=== PATIENT | female | born 1990 | race Caucasian/White ===

== ENCOUNTER 2022-02-04 13:49 | Outpatient (CLI) | payer OTHER, SELFPAY ==
--- NOTE | 2022-02-04 14:00 | CRLHL7_ITS ---
For Patients: As a result of the Century Cures Act, medical imaging exams and procedure reports are released immediately into your electronic medical record. You may view this report before your referring provider. If you have questions, please contact your health care provider. OBSTETRICAL ULTRASOUND, 02/04/2022 JOE by LMP: 06/20/2022. GA: 20w, 4d. INDICATION: OB>14 weeks anatomy. FINDINGS: position: Vertex. Cervix: Visualized. Technique: Transabdominal. Length of closed cervix: 4.6 cm. Placenta/cord: Posterior. Technique: Transabdominal. Placenta tip to internal OS: 4.5 cm. Umbilical Cord: 3-vessel cord. Placenta insertion: Central. Amniotic Fluid: 4.2cm SDP (greater than/equal to: 2- less than 8 cm). SURVEY: Observed Structures Calvarium/Spine: Cerebellum: 1.9 cm, 19w 5d. Cisterna Magna: 5.1 mm. Nuchal Fold: 4.8 mm. Lateral Ventricle: 7.0 mm. CSP: Yes. Midline Falx: Yes. Choroid Plexus: Yes. Spine: Yes. Abdomen: Stomach: Yes. Abd Cord Insertion: Yes. Urinary Bladder: Yes. Kidneys: Yes. Diaphragm: Yes. Face: Nose/lips: Yes. Orbital view: Yes. Profile: Yes. Limbs: Upper Extremities: Yes. Lower Extremities: Yes. Hands: Yes. Feet: Yes. BPD: 4.8 cm. 20 w 3 d, 42 percent. HC: 18.3 cm. 20 w 5 d, 47 percent. AC: 16.6 cm. 21 w 4 d, 77 percent. FL: 3.4 cm. 20 w 4 d, 42 percent. FL/AC: 20 percent. HC/AC Ratio: 1.1. Heart rate: 150 beats per minute. age by this US: 20 w 4 d. JOE by this US: 06/20/2022 EFW: 397.3g. Weight: 14 oz. Percentile by JOE: 73 percent. IMPRESSION: Single live intrauterine gestastion. No gross anomalies visualized. Four-chamber heart, outflow tracts, and profile views were poorly seen. Rubina Youssef M.D. Diagnostic/Breast Radiologist [email or web address] Transcribed: 8:30 a.m. JR/Dictated by: Rubina Youssef MD @ 02/06/2022 6:12:00 AM (Electronically Signed)
== END 2022-02-04 13:50 | disposition home or self-care (01) ==
LOC: US 13:49
PROVIDERS: PCP Family Medicine; Visit Provider Advanced Practice Midwife
DX: Z34.92 Encounter for supervision of normal pregnancy, unspecified, second trimester (principal); Z3A.20 20 weeks gestation of pregnancy
CPT/HCPCS: 76805

== ENCOUNTER 2022-02-26 16:48 | Outpatient (CLI) | payer OTHER, SELFPAY ==
--- NOTE | 2022-02-26 17:00 | CRLHL7_ITS ---
For Patients: As a result of the Century Cures Act, medical imaging exams and procedure reports are released immediately into your electronic medical record. You may view this report before your referring provider. If you have questions, please contact your health care provider. INDICATION: missing heart and profile on anatomy scan COMPARISON: 02/04/2022 TECHNIQUE: Real time huertas scale imaging of the fetus was performed. FINDINGS: Sonographic imaging demonstrates a single living intrauterine gestation. Fetus demonstrates a regular cardiac rate of 149 beats per minute. Fetus has a breech position. The placenta lies posteriorly. Amniotic fluid volume appears normal. Single deepest vertical pocket: 4.6 cm. There is a normal four-chamber heart view and the left and right ventricular outflow tracts appear normal. Normal profile. IMPRESSION: Normal heart and profile. Dictated by Yevgeniy Rosa MD @ 02/28/2022 11:35:39 AM (Electronically Signed)
== END 2022-02-26 16:49 | disposition home or self-care (01) ==
PROVIDERS: PCP Family Medicine; Visit Provider Advanced Practice Midwife
DX: O36.8390 Maternal care for abnormalities of the fetal heart rate or rhythm, unspecified trimester, not applicable or unspecified (principal)
CPT/HCPCS: 76816

== ENCOUNTER 2022-03-26 15:05 | Outpatient (CLI) | payer OTHER, SELFPAY ==
--- OUTSIDE RECORDS SUMMARY | 2022-03-26 16:28 | XMS_ITS ---
:1990 Author Name None, No PCP Care Team Providers Name Role Phone None, No PCP Unavailable Unavailable PROBLEMS Unknown Problems ALLERGIES No Known Allergies ENCOUNTERS Encounter Location Date Diagnosis [facility] [address], [place], [place] [id number] [facility] [address] [place] Dec, [place] [address] confirmed, currently in second trimester Z34.02 [facility] [address] [place] Nov, [place] [address] screening for chromosomal anomalies Z36.0 [facility] [address] [place] Nov, E [place] [address] of other n ormal , first trimester Z34.81 [facility] [address] [place] Nov, E [place] [address] of other n ormal , unspe cified trimester Z34.80 [facility] [address] [place] Nov, [place] [address] related ex amination in first trimester Z34.81 and Diabetes yoel litus screening Z13.1 [facility] [address] [place] Oct, [place] [address] related ex amination in first trimester Z34.81 [facility] [address] [place] Oct, [place] [address] [facility] [address] Oct, E [place] [address] of other n ormal , unspe cified trimester Z34.80 [facility] [address] Oct, [place] [address] related ex amination in first trimester Z34.81 and Screening fo r diabetes mellitu s Z13.1 IMMUNIZATIONS No Known Immunizations SOCIAL HISTORY Qualifiers Date Never Smoker REASON FOR REFERRAL FUNCTIONAL STATUS PLAN OF CARE Activity Details Pending Test HEMOGLOBIN A1c Pending Test HEPATITIS C AB W/REFL TO HCV RNA, QN, PCR Pending Test VARICELLA ZOSTER VIRUS ANTIB EMORY (IGG) Pending Test OBSTETRIC PANEL W/FOURTH GEN ERATION HIV Pending Test OBSTETRIC PANEL W/FOURTH GEN ERATION HIV Pending Test HEPATITIS C AB W/REFL TO HCV RNA, QN, PCR Pending Test VARICELLA ZOSTER VIRUS ANTIB EMORY (IGG) Pending Test HEMOGLOBIN A1c VITAL SIGNS Height 64 in 2022-01-10 Weight 170.6 lbs 2022-01-10 BMI 29.283 kg/m2 2022-01-10 Blood pressure systolic 108 mm Hg 2022-01-10 Blood pressure diastolic 60 mm Hg 2022-01-10 MEDICATIONS Medication Instructions Dosage Frequency Start Date End Date Duration S tatus Active PROCEDURES Procedure Date Ordered Result Body Site BRIEF EMOTIONAL/BEHAV ASSMT Nov 14, 2021 MATERNITY CARE PROCEDURE Jan 10, 2022 VENIPUNCT, ROUTINE* Dec 12, 2021 MATERNITY CARE PROCEDURE Dec 12, 2021 OB US < 14 WKS, SINGLE FETUS Dec 12, 2021 No Charge Visit Dec 12, 2021 URINALYSIS, AUTO, W/O SCOPE Nov 14, 2021 OB US < 14 WKS, SINGLE FETUS Nov 14, 2021 No Charge Visit Nov 14, 2021 RESULTS Name Result Date Reference Range Panorama Test 2021-12-12 Report Summary See Notes HEMOGLOBIN A1c 2021-12-12 HEMOGLOBIN A1c 5.2 <5.7 HEPATITIS C AB W/REFL TO HCV RNA, 2021-12-12 QN, PCR HEPATITIS C ANTIBODY NON-REACTIVE NON-REACTIV E INDEX 0.07 <1.00 VARICELLA ZOSTER VIRUS ANTIBODY 2021-12-12 (IGG) VARICELLA ZOSTER VIRUS ANTIBODY 2291.00 (IGG) OBSTETRIC PANEL W/FOURTH GENERATION 2021-12-12 HIV WHITE BLOOD CELL COUNT 10.3 3.8-10.8 RED BLOOD CELL COUNT 4.51 3.80-5.10 HEMOGLOBIN 12.7 11.7-15.5 HEMATOCRIT 38.3 35.0-45.0 MCV 84.9 80.0-100.0 MCH 28.2 27.0-33.0 MCHC 33.2 32.0-36.0 RDW 12.2 11.0-15.0 PLATELET COUNT 307 140-400 MPV 9.3 7.5-12.5 ABSOLUTE NEUTROPHILS [phone] ABSOLUTE LYMPHOCYTES 2318 850-3900 ABSOLUTE MONOCYTES 597 200-950 ABSOLUTE EOSINOPHILS 309 15-500 ABSOLUTE BASOPHILS 31 0-200 NEUTROPHILS 68.4 LYMPHOCYTES 22.5 MONOCYTES 5.8 EOSINOPHILS 3.0 BASOPHILS 0.3 ANTIBODY SCREEN, RBC W/REFL ID, NO ANTIBODIES DETECTED TITER AND AG ABO GROUP O RH TYPE RH(D) POSITIVE RPR (DX) W/REFL TITER AND NON-REACTIVE NON-RE ACTIVE CONFIRMATORY TESTING HEPATITIS B SURFACE ANTIGEN NON-REACTIVE NON- REACTIVE RUBELLA AB (IGG), IMMUNE STATUS 2.03 HIV AG/AB, 4TH GEN NON-REACTIVE NON-REACTIVE Urinalysis, Routine - IH 2021-11-14 Urine Color yellow Yellow - Doris Appearance clear Clear - Glucose neg Bilirubin neg Ketone neg Specific [place] 1.015 Blood neg pH 7.0 Protein neg Urobilinogen 0.2 Nitrite neg Leukocytes neg Glucose Bilirubin Ketones Specific [place] Occult Blood pH Protein Urobilinogen Nitrite Leukocytes CULTURE, URINE, ROUTINE 2021-11-14 CULTURE, URINE, ROUTINE SEE NOTE REASON FOR VISIT Insurance Providers [facility] Member Patient Patient Patient Patient Patient Subscriber Subscriber Subscriber Group Insurance Plan Plan Plan Plan ID Relationship Address Phone Name Date of ID Name Date of No Type Insurance Insurance Insurance Coverage to Subscriber Address Phone Name Dates UMR (INS [address] UMR (INS self Chuyita 1990 [id number] BILL) [id number] BILL) [place] [address] [facility] [address] BCBS [address] BCBS self Chuyita 1990 [id number] [place] [id number] [facility] [id number]
[2022-03-28 16:10] LABS: Rapid Plasma Reagin (RPR) Non Reactive (Non Reactive)
== END 2022-03-26 15:06 | disposition home or self-care (01) ==
LOC: NFLDREF 16:26
PROVIDERS: PCP Family Medicine; Visit Provider Physician Assistant
DX: Z34.92 Encounter for supervision of normal pregnancy, unspecified, second trimester (principal); Z3A.27 27 weeks gestation of pregnancy
CPT/HCPCS: 86592

== ENCOUNTER 2022-05-20 16:12 | Outpatient (CLI) | payer OTHER, SELFPAY ==
--- OUTSIDE RECORDS SUMMARY | 2022-05-20 16:14 | XMS_ITS ---
:1990 Author Name None, No PCP Care Team Providers Name Role Phone None, No PCP Unavailable Unavailable PROBLEMS Unknown Problems ALLERGIES No Known Allergies ENCOUNTERS Encounter Location Date Diagnosis [facility] [address], [place], [place] [id number] [facility] [address] [place] Dec, [place] [address] confirmed, currently in second trimester Z34.02 [facility] [address] [place] Nov, [place] [address] screening for chromosomal anomalies Z36.0 [facility] [address] [place] Nov, [place] [address] of other n ormal , first trimester Z34.81 [facility] [address] [place] Nov, [place] [address] of other n ormal , unspe cified trimester Z34.80 [facility] [address] [place] Nov, [place] [address] related ex amination in first trimester Z34.81 and Diabetes yoel litus screening Z13.1 [facility] [address] [place] Oct, [place] [address] related ex amination in first trimester Z34.81 [facility] [address] [place] Oct, [place] [address] [facility] [address] [place] Oct, [place] [address] of other n ormal , unspe cified trimester Z34.80 [facility] [address] Oct, [place] [address] related ex amination in first trimester Z34.81 [...] (IGG) OBSTETRIC PANEL W/FOURTH GENERATION 2021-12-12 HIV ABO GROUP O ABSOLUTE BASOPHILS 31 0-200 ABSOLUTE EOSINOPHILS 309 15-500 ABSOLUTE LYMPHOCYTES 2318 850-3900 ABSOLUTE MONOCYTES 597 200-950 ABSOLUTE NEUTROPHILS 7045 5475-2375 ANTIBODY SCREEN, RBC W/REFL ID, NO ANTIBODIES DETECTED TITER AND AG BASOPHILS 0.3 EOSINOPHILS 3.0 HEMATOCRIT 38.3 35.0-45.0 HEMOGLOBIN 12.7 11.7-15.5 HEPATITIS B SURFACE ANTIGEN NON-REACTIVE NON- REACTIVE HIV AG/AB, 4TH GEN NON-REACTIVE NON-REACTIVE LYMPHOCYTES 22.5 MCH 28.2 27.0-33.0 MCHC 33.2 32.0-36.0 MCV 84.9 80.0-100.0 MONOCYTES 5.8 MPV 9.3 7.5-12.5 NEUTROPHILS 68.4 PLATELET COUNT 307 140-400 RDW 12.2 11.0-15.0 RED BLOOD CELL COUNT 4.51 3.80-5.10 RH TYPE RH(D) POSITIVE RPR (DX) W/REFL TITER AND NON-REACTIVE NON-RE ACTIVE CONFIRMATORY TESTING RUBELLA AB (IGG), IMMUNE STATUS 2.03 WHITE BLOOD CELL COUNT 10.3 3.8-10.8 Urinalysis, Routine - IH 2021-11-14 Urine Color yellow Yellow - Doris Appearance clear Clear - Glucose neg Bilirubin neg Ketone neg Specific [place] 1.015 Blood neg pH 7.0 Protein neg Urobilinogen 0.2 Nitrite neg Leukocytes neg Glucose Bilirubin Ketones Specific [place] Occult Blood pH Protein Urobilinogen Nitrite Leukocytes CULTURE, URINE, ROUTINE 2021-11-14 CULTURE, URINE, ROUTINE SEE NOTE REASON FOR VISIT Insurance Providers [facility] Member Patient Patient Patient Patient Patient Subscriber Subscriber Subscriber Group Insurance Plan Plan Plan Plan ID Relationship Address Phone Name Date of ID Name Date of No Type Insurance Insurance Insurance Coverage to Subscriber Address Phone Name Dates BCBS [address] BCBS self [place]uyita 1990 [id number] [place] [address] [facility] [id number] UMR (INS [address] UMR (INS self [place]uyita [id number] BILL) [id number] [address] BILL) [address] [address]
[2022-05-21 13:41] LABS: Strep B DNA Probe NEGATIVE (Negative)
[2022-05-21 13:44] LABS: Strep B Pen/Amox Allergy No
== END 2022-05-20 16:13 | disposition home or self-care (01) ==
LOC: NFLDREF 16:13
PROVIDERS: PCP Family Medicine; Visit Provider Obstetrics & Gynecology
DX: Z34.03 Encounter for supervision of normal first pregnancy, third trimester (principal)
CPT/HCPCS: 87081; 87653

== ENCOUNTER 2022-06-16 09:31 | Inpatient (IN) | payer OTHER, SELFPAY ==
[2022-06-16] VITALS (89 sets, daily range): BP systolic 81–142; BP diastolic 41–86; PULSE 74–118; RESP 16–18; TEMP 36.5–37.2; O2SAT 88–100; BMI 36.1
[2022-06-16 07:59] LABS: Amnisure Rom* Negative
[2022-06-16 08:37] LABS: Trichomonas No Trichomonas Seen (None Seen); Yeast No Yeast Seen (None Seen)
[2022-06-16 08:38] LABS: Clue Cells No Clue Cells Seen (None Seen)
[2022-06-16 10:47] LABS: SARS PCR* Negative SARS-CoV-2 (Negative)
--- NOTE | 2022-06-16 11:05 | P.LDBA_ITS ---
Subjective History of Present Illness Date Seen: 06/16/22 Narrative: Patient is being admitted to Labor and Delivery for IOL after SROM. She is a 32 year old at 39 3/7 weeks gestation. Her full history and physical was dictated by Dr. Marcelino on 05/28/22. Please see this for details. Patient states that this morning she was in bed and felt a herd a pop followed by watery like discharge. Came in to be evaluated and AmniSure was collected found to be negative. There was some watery discharge noted by RN upon physical exam and she discussed case with me and I recommended to have patient walk around with a pad in place and re evaluate. Soon after ambulation the pad was soaked with a pink tinged watery fluid. This is consistent with SROM and recommendation given for admission and IOL. Expected Delivery Route/Plan MD patient. H&P done by Carlo Marcelino on 05/28/22. Specific Issues/Plans Expecting a girl Luz 1.? Hx of ADHD, stopped Adderall in Mar 2. Episodes of dizziness, SOB, chest pressure and pain at 36 weeks.? EKG and chest xray performed. 3. Last pap smear? [] NEEDS: follow up u/s for profile and cardiac, unable to see on anatomy scan r/t position:? Completed, normal heart views and normal profile COVID: Fully vaccinated, not boosted Flu: declines, not interested Tdap: 04/09/22 Transfer records: 11/14/21? 8.6 weeks by LMP, 9.1 by u/s. 12/12/21 dating u/s: 13.3 weeks by u/s, 12.6 by LMP 12/12/21 Labs: HgbA1C 5.2.? Hep c neg.? Varicella Immune, Hgb 12.7.? Platelets 307, Antibody neg, O+, RPR neg, Hep B neg, Rubella Immune, HIV neg, Urine culture: under 10,000 gram + organism noted. OB - Problem Based A/P Additional Plan (1) Premature rupture of membranes: Status: Acute Plan 1. IOL in the setting of PROM. Offered to start IV oxytocin or we could also consider oral cytotec. 2. GBS negative, no antibiotics needed. 3. Pain management as desired by patient. OB Exam Physical Exam Vital signs: Temp Pulse Resp BP Pulse Ox 98 F 100 16 110/69 97 06/16/22 07:21 06/16/22 07:20 06/16/22 07:21 06/16/22 07:20 06/16/22 07:21 Detailed Labor and Delivery Exam Patient Gravid: Yes Dilation (cm): 1 Effacement (%): 40 Cervix position: posterior Consistency: medium Contraction Frequency: Irregular Tachysystole: No Contraction intensity: Mild Fetus (Single) Station: -3 Amniotic Membrane Status: SROM Amniotic Membrane Fluid Description: Clear Heart Rate Baseline: 140 Monitor Accelerations: Present Monitor Decelerations: None Chcf Variability: Moderate (6-25)
[2022-06-16 13:11] LABS: Basophils Absolute Auto 0.02 K/uL (0.00-0.30); Basophils Percent Auto 0.2 % (0.0-3.0); Eosinophils Absolute Auto 0.12 K/uL (0.00-0.50); Eosinophils Percent Auto 1.2 % (0.0-7.0); Hematocrit 34.6 % (33.0-51.0); Hemoglobin* 11.2 gm/dL (12.0-16.0); Lymphocytes Percent Auto 17.9 % (20-44); Mean Corpuscular HGB Conc 32 gm/dL (32-36); Mean Corpuscular Hemoglobin 28 pg (26-34); Mean Corpuscular Volume 85 fL (80-100); Monocytes Percent Auto 7.4 % (0.0-11.0); Neutrophils Percent Auto 72.3 % (42.0-72.0); Platelet Count* 237 K/uL (140-440); RDW Coefficient of Variation % 13.2 % (11.5-15.5); Red Blood Count 4.05 m/uL (4.00-5.20); White Blood Count* 10.42 K/uL (4.50-11.00)
[2022-06-16] MEDS: LACTATED RINGERS 1000 ML 1,000 ML 124 ML IV (13:11)
[2022-06-16] MEDS: OXYTOCIN 30 unit/500 ML in NS 30 UNIT/500 ML BAG IVPB (13:12)
[2022-06-16 13:13] LABS: Slide Review Reflex No
[2022-06-16] MEDS: LACTATED RINGERS 1000 ML 1,000 ML 125 ML IV ×2 (17:10→21:37)
[2022-06-16] MEDS: ROPIVACAINE 0.2% 100 ml 100 ML 12 MG EPIDURAL (17:12)
[2022-06-16] MEDS: PHENYLEPHRINE 100 MCG/ML SYRINGE IVP ×3 (17:26→17:42)
--- NOTE | 2022-06-16 17:34 | P.ANBPRC_ITS ---
[facility] Medical History Attention deficit hyperactivity disorder (ADHD) Surgical History [place] teeth extracted Family History Father High blood pressure Diabetes Social History Smoking Status: Never smoker Little interest or pleasure in doing things: several days Feeling down, depressed, or hopeless: several days Meds Home Medications and Allergies Home Medications Medication Instructions Recorded Confirmed Type prenat.vits,kayleigh,kai-dbzj-yueuj 1 tab PO QDAY 02/04/22 06/16/22 History calcium carbonate 500 mg calcium 500 mg PO QDAY PRN 05/28/22 06/16/22 History (1,250 mg) chewable tablet docusate sodium 100 mg capsule 100 mg PO QDAY 05/28/22 06/16/22 History (Colace) Allergies Allergy/AdvReac Type Severity Reaction Status Date / Time No Known Drug Allergies Allergy Verified 06/16/22 07:45 Results Labs Labs: Laboratory Results - last 24 hr 06/16/22 06/16/22 06/16/22 07:41 08:18 09:50 WBC RBC Hgb Hct MCV MCH MCHC RDW Coeff of Guillermo Plt Count Neut % (Auto) Lymph % (Auto) Schley % (Auto) Eos % (Auto) Baso % (Auto) Neut # (Auto) Lymph # (Auto) Schley # (Auto) Eos # (Auto) Baso # (Auto) Membrane Rupture Negative Vaginal Trichomonas No Trichomonas Seen Vaginal Yeast No Yeast Seen Vaginal Clue Cells No Clue Cells Seen SARS-CoV-2 (PCR) Negative SARS-CoV-2 Blood Type Antibody Screen 06/16/22 13:04 WBC 10.42 RBC 4.05 Hgb 11.2 L Hct 34.6 MCV 85 MCH 28 MCHC 32 RDW Coeff of Guillermo 13.2 Plt Count 237 Neut % (Auto) 72.3 H Lymph % (Auto) 17.9 L Schley % (Auto) 7.4 Eos % (Auto) 1.2 Baso % (Auto) 0.2 Neut # (Auto) 7.50 H Lymph # (Auto) 1.90 Schley # (Auto) 0.80 Eos # (Auto) 0.12 Baso # (Auto) 0.02 Membrane Rupture Vaginal Trichomonas Vaginal Yeast Vaginal Clue Cells SARS-CoV-2 (PCR) Blood Type O Positive Antibody Screen NEGATIVE Vital Signs Vital Signs: Last Vital Signs Temp 98.6 F 06/16/22 17:12 Pulse 90 06/16/22 17:32 Resp 16 06/16/22 17:12 BP 114/49 L 06/16/22 17:32 Pulse Ox 94 06/16/22 17:33 Weight: 95.345 kg Height: 162.56 cm Anesthesia Procedures Epidural Insertion Patient Location: OB Start Time: 16:50 Stop Time: 17:50 Start Date: 06/16/22 Stop Date: 06/16/22 Reason for Block: procedure for pain Patient Position: sitting Performed By: Gurpreet Brown Preanesthetic Checklist: IV checked, risks and benefits discussed, surgical consent, monitors and equipment checked, pre-op evaluation, timeout performed and anesthesia consent Prep: chlorhexidine gluconate Monitoring: blood pressure monitoring, continuous pulse oximetry and heart rate Approach: midline Vertebral Space: lumbar (1-5) Epidural Technique: LASHAE saline Needle Type: Tuohy needle Injection Technique: continuous catheter Needle gauge: 17 Needle Length (cm): 10 cm Needle Insertion Depth (cm): 6 Catheter Gauge: 19 Catheter Type: multi-orifice Catheter at skin depth (cm): 12 Test Dose Result: negative and lidocaine 1.5% with epinephrine 1 to 200,000
[2022-06-16] MEDS: ePHEDrine sulfate 5 MG/ML inj 10 MG IVP ×2 (17:50→17:59)
[2022-06-16] MEDS: SODIUM CHLORIDE 0.9 % (FLUSH) 10 ML SYRINGE IVF (17:52)
--- NOTE | 2022-06-16 19:21 | P.OBPN_ITS ---
Subjective Date Seen: 06/16/22 Narrative: Feeling a lot better after epidural placement. Objective Vital Signs: Last Vital Signs Temp 98.3 F 06/16/22 18:13 Pulse 85 06/16/22 19:20 Resp 16 06/16/22 18:13 BP 111/59 L 06/16/22 19:20 Pulse Ox 95 06/16/22 19:18 Pelvic Exam Dilation (cm): 8 Effacement (%): 100 Station: -1 Contractions Monitor mode: External Contraction pattern: Regular Contraction intensity: Moderate Pitocin Rate (mU/min): 0 Assessment Assessment: active labor Station: -1 Amniotic Membrane Status: SROM Status: Category ll Heart Rate Baseline: 140 Group Home Variability: Moderate (6-25) Monitor Accelerations: Present Monitor Decelerations: Early Tracing Comments: After placement of epidural and episode of hypotension, minimal variability with sporadic decelerations, oxytocin was discontinued. Currently improved variability, accelerations present, early and sporadic variable decelerations. Labor Progress: Adequate Plan Plan: Restart oxytocin, continue current management, will re check cervix in 2 hours.
[2022-06-16] MEDS: CALCIUM CARBONATE 500 MG CHEW PO (19:32)
--- NOTE | 2022-06-16 22:20 | PM.OBPNL ---
Subjective Time Seen by Provider: 22:20 Date Seen: 06/16/22 Narrative: Feeling more pressure Objective Vital Signs: Last Vital Signs Temp 98.9 F 06/16/22 20:59 Pulse 105 H 06/16/22 22:15 Resp 16 06/16/22 20:59 BP 116/69 06/16/22 22:15 Pulse Ox 97 06/16/22 22:08 Pelvic Exam Dilation (cm): 9 Effacement (%): 100 Station: -1 Contractions Monitor mode: External Contraction pattern: Regular Contraction intensity: Moderate Pitocin Rate (mU/min): 3 Assessment Assessment: active labor Station: -1 Amniotic Membrane Status: SROM Status: Category ll Heart Rate Baseline: 140 Correction Variability: Moderate (6-25) Monitor Accelerations: Present Monitor Decelerations: Early Tracing Comments: Has had episodes of sporadic late decelerations, these had continued to resolve with position changes. Oxytocin was increased very slowly. Cervical check right now, station still -1, LOT. Tried manual rotation and baby moves well but then flips back. Labor Progress: Protracted Maternal Status: Stable Plan Plan: Will continue to increase oxytocin, position changes. Will re check in 2 hours and if no further descent will recommend delivery. Will recommend delivery sooner if tracing worsens and we are unable to keep increasing oxytocin.
--- NOTE | 2022-06-16 23:25 | PM.OBPNL ---
Subjective Date Seen: 06/16/22 Narrative: Okay Objective Vital Signs: Last Vital Signs Temp 98.5 F 06/16/22 22:10 Pulse 101 H 06/16/22 23:15 Resp 18 06/16/22 22:10 BP 107/59 L 06/16/22 23:15 Pulse Ox 97 06/16/22 22:08 Pelvic Exam Dilation (cm): 9 Effacement (%): 100 Station: -1 Comments: No movement Contractions Monitor mode: External Contraction pattern: Regular Contraction intensity: Moderate Pitocin Rate (mU/min): 4 Assessment Assessment: active labor Station: -1 Amniotic Membrane Status: SROM Status: Category ll Heart Rate Baseline: 140 [employer] Variability: Moderate (6-25) Monitor Accelerations: Present Monitor Decelerations: Recurrent Tracing Comments: Decelerations have now become recurrent and more prolonged. Labor Progress: Arrest Maternal Status: Stable Plan Plan: Recommend delivery now. Persistent category 2 tracing, variable decelerations are now recurrent and prolonged. Oxytocin turned off again. station -1 and does not move at all with contraction. Discussed findings with patient and . Discussed how surgery is performed and risks of surgery such as bleeding, infection, damage to nearby organs, blood clots. Discussed interventions to decrease these risks. Discussed usual pp recovery and how it may differ from a vaginal delivery. Patient and are in agreement with proceeding with delivery.
[2022-06-17] VITALS (36 sets, daily range): BP systolic 91–184; BP diastolic 56–110; PULSE 78–108; RESP 15–18; TEMP 36.7–37.2; O2SAT 93–99
[2022-06-17] MEDS: CEFAZOLIN 2 GM INJ IVP (00:20)
[2022-06-17] MEDS: AZITHROMYCIN 500 MG in 0.9 % SODIUM CHLORIDE 250 ml 250 ML 255 MG IVPB (00:25)
[2022-06-17] MEDS: TRANEXAMIC ACID 100 MG/ML INJ 1000 MG IV (00:35)
[2022-06-17] MEDS: METHYLERGONOVINE MALEATE 0.2 MG/ML INJ IM (00:40)
[2022-06-17] MEDS: LACTATED RINGERS 1000 ML 1,000 ML 125 ML IV (00:50)
[2022-06-17] MEDS: miSOPROStoL 800 MCG/4 TABLET PR (00:52)
--- NOTE | 2022-06-17 01:17 | P.OBPRC_ITS ---
Procedure Pre-op/Post-op diagnoses: Pre-Op/Post-Op Diagnoses Pre Operative Diagnosis: 1. IUP at 39 4/7 weeks 2. Premature rupture of membranes 3. Persistent category 2 tracing 4. Arrest in descent Post Op Diagnosis: 1. Same now delivered 2. Uterine atony hemorrhage Procedure Done: Global Procedure Details: Procedures Operation Date: 06/17/22 00:45 Actual Procedure Side Surgeon p Section Irma Figueroa MD Estimated blood loss (mL): 1,106 Disposition: floor Anesthesia type: Epidural Complications: Uterine atony, hemorrhage Narrative: NAME OF PROCEDURE: Primary low transverse section. ANESTHESIA: Epidural COMPLICATIONS: Uterine atony, hemorrhage QUANTITATIVE BLOOD LOSS: 1106 DRAINS: Tang to gravity FINDINGS: Live-born female , OP presentation, Apgars 8 and 9 at 1 and 5 minutes respectively. weight 8 lb 5 oz. Thin umbilical cord. PROCEDURE: After obtaining informed consent, the patient was taken to the operating room where epidural anesthesia was confirmed to be adequate. She was prepared and draped in the normal sterile fashion in the dorsal supine position with a leftward tilt. A Pfannenstiel skin incision was made with a scalpel about 2 cm above symphysis pubic bone, 8-10 cm in length. This incision was carried down to the underlying layer of fascia with the Bovie and scalpel. The fascia was incised in the midline and the incision extended laterally. The rectus muscles were then in the midline. The Constantino O retractor was then placed into the incision. The lower uterine segment was then incised in a transverse fashion with the scalpel. Upon entry into the uterus, clear amniotic fluid was noted. The uterine incision was extended cephalo caudally with blunt finger fractionation. head was turned and brought up to incision and with fundal pressure the rest of he body was assisted and delivered atraumatically. The cord was doubly clamped and cut, and the infant was handed off the field to warm for evaluation after 30 seconds of delayed cord clamping. The placenta was delivered spontaneously with umbilical cord traction and fundal massage. The uterus was cleared of all clots and debris. Uterine atony identified and treated with IV Oxytocin, 1 dose of Methergine, 800mcg of rectal misoprostol. The uterine incision was reapproximated in a running locking fash ion with a 0 Vicryl suture. A 2nd layer of the same suture was used to imbricate in horizontal fashion. Eyal utilized to help further secure hemostasis from small oozing vessels from serosal edges. The gutters were inspected and cleared of blood clot. All instruments and retractors were removed. The subfascial tissues were carefully inspected and hemostasis assured. The fascia was reapproximated in a running fashion with a looped 0 Vicryl suture. The subcutaneous tissues were inspected and hemostasis was assured. The subcutaneous fat layer measured less than 2cm and was not approximated. The skin was closed in a subcuticular fashion with 4-0 Monocryl. Steri strips and gauze for pressure dressing in place. The patient tolerated the procedure well. Sponge, lap, needle, and instrument counts were reported as correct x2. The patient was taken to the recovery room, awake, and in stable condition. She did receive 2 grams of IV Ancef and 500mg of Azithromycin preoperatively. Also, 1g of TXA after cord clamping. OB Delivery Proc Additional Procedures Tubal Ligation at the time of : No Other: No
[2022-06-17] MEDS: KETOROLAC 30 MG/ML inj IVP ×4 (01:20→20:05)
--- NOTE | 2022-06-17 01:35 | P.ANES_ITS ---
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
--- NOTE | 2022-06-17 01:36 | P.NB_ITS ---
Nerve Block Nerve Block Time Seen by Provider: : Date Seen: 06/17/22 Type of block requested by surgeon for post-operative analgesia: TAP Side: bilateral Time out performed: Yes Verification of patient name: Yes Verification of date of : Yes Site marking: site marked Name of person performing procedure: Gurpreet Brown Continuous monitoring Was continuous monitoring of O2 sat, B/P, monitor worker, recorded every 15 minutes?: Yes Procedure Checklist: sterile prep, needles and gloves Ultrasound guided. Images saved: Yes Medications given in 5ml increments after negative aspiration: Marcaine %: 0.25 mL: 30 Needle gauge: 20 and Exparel mL: 10 Needle gauge: 20 Patient tolerated procedure well: Yes Additional comments: Injected in 5ml increments after negative aspiration Block Charges Block Charge (with Pro Fee): TAP Bilateral Use of Ultrasound Machine for Block: Yes- US Guidance/pain block
[2022-06-17 05:58] LABS: Hemoglobin* 10.3 gm/dL (12.0-16.0)
[2022-06-17] MEDS: DOCUSATE SODIUM 100 MG CAPSULE PO (09:38)
[2022-06-18] MEDS: ACETAMINOPHEN 500 MG TABLET 1000 MG PO ×4 (00:37→19:04)
[2022-06-18] MEDS: KETOROLAC 30 MG/ML inj IVP (01:19)
[2022-06-18 04:00] VITALS: BP 101/66; PULSE 73; RESP 18; TEMP 36.6; O2SAT 96
[2022-06-18 06:30] LABS: Hemoglobin* 9.7 gm/dL (12.0-16.0)
[2022-06-18] MEDS: IBUPROFEN 600 MG TABLET PO ×3 (07:33→23:03)
[2022-06-18] MEDS: DOCUSATE SODIUM 100 MG CAPSULE PO (07:34)
[2022-06-18 07:45] VITALS: BP 99/63; PULSE 73; RESP 18; TEMP 36.5; O2SAT 95
--- NOTE | 2022-06-18 07:50 | PM.OBPNCS1 ---
OB - PN: A/P Assessment and Plan (1) care and examination immediately after delivery: Status: Acute (2) Status post delivery: Status: Acute (3) Lactating mother: Status: Acute (4) hemorrhage, delivered, current hospitalization: Status: Acute (5) Anemia due to acute blood loss: Status: Acute Plan day: 1 Plan: routine postop care Comments: Lactating mother. May see if desired. Anemia. Continue iron supplement. Anticipate discharge tomorrow or Friday, 06/19 or 06/20. OB - PN: Subj Subjective Date Seen: 06/18/22 Interval history: Malu is a 32 yo s/p section for failure to descend complicated by hemorrhage. Patient comments: no complaints [place] status: doing well feeding status: exclusively Narrative: Chuyita is a 32 y.o. who was admitted to L & D for PROM. ?She had an complicated by hemorrhage.?The patient feels well. ?The pain is well controlled with current medications. ?She has no new complaints. ?She is breast feeding and reports things are going ok.? the patient has done well.? Vitals have been stable.? She has remained afebrile.? Has a good appetite, is tolerating a general diet. ?She is voiding without difficulty.? She is passing gas and has not had a bowel movement.? She is ambulating and denies any dizziness.? Has scant amount of rubra lochia. She has continues to take an iron supplement. OB - PN: Obj Exam Physical Exam: Vital signs: Temp Pulse Resp BP Pulse Ox O2 Del Method 97.8 F 73 18 101/66 96 Room Air 06/18/22 04:00 06/18/22 04:00 06/18/22 04:00 06/18/22 04:00 06/18/22 04:00 06/18/22 04:00 Narrative: GENERAL APPEARANCE:? normal affect, alert, no distress MOOD:? appropriate CHEST:? clear to auscultation HEART:? regular rate and rhythm ABDOMEN:? soft, non-tender the uterine fundus is At Umbilicus, Midline and is appropriate for the stage of recovery. PERINEUM:? mild edema of the perineum EXTREMITIES:? normal and trace edema Incision: Dressing removed, dry drainage/blood visible on steri strips. Healing well, no surrounding erythema, abnormal induration or discharge. OB - PN: Obj Data Labs Labs: Laboratory Results - last 24 hr 06/18/22 06:15 Hgb 9.7 L
[2022-06-18 16:30] VITALS: BP 105/67; PULSE 89; RESP 18; TEMP 36.6; O2SAT 959
[2022-06-18] MEDS: OXYCODONE 5 MG TABLET PO (19:04)
[2022-06-18 23:42] VITALS: BP 102/67; PULSE 84; RESP 18; TEMP 36.7; O2SAT 96
[2022-06-19] MEDS: ACETAMINOPHEN 500 MG TABLET 1000 MG PO ×2 (04:30→10:30)
[2022-06-19] MEDS: OXYCODONE 5 MG TABLET PO ×2 (04:30→10:30)
[2022-06-19] MEDS: IBUPROFEN 600 MG TABLET PO (06:33)
[2022-06-19 07:30] VITALS: BP 128/85; PULSE 80; RESP 16; TEMP 36.7; O2SAT 97
[2022-06-19] MEDS: LANOLIN CREAM 1 APPLIC TOPICAL (07:48)
[2022-06-19] MEDS: DOCUSATE SODIUM 100 MG CAPSULE PO (07:48)
--- NOTE | 2022-06-19 09:03 | PM.OBDSCS1 ---
DS: Providers Provider Time Seen by Provider: 09:03 Date Seen: 06/19/22 Date of admission: 06/16/22 09:31 Primary care physician: Norberto Lundy MD Admitting Clinician: Irma Figueroa MD Attending Physician on discharge: Irma Figueroa MD Date of Discharge: 06/19/22 DS: Diagnosis Discharge Diagnosis (1) Status post delivery: Status: Acute (2) Lactating mother: Status: Acute (3) hemorrhage, delivered, current hospitalization: Status: Acute (4) Anemia due to acute blood loss: Status: Acute (5) Attention deficit hyperactivity disorder (ADHD): Status: Chronic Problem details: Previously took Adderall, 25 mg, stopped in Mar Exam Narrative: Exam Narrative: VSS. ?Afebrile GENERAL APPEARANCE: ?normal affect, alert, no distress MOOD: ?appropriate HEENT: normocephalic, neck supple, full ROM CHEST: ?Symmetrical chest wall movement. ?Normal respiratory effort. ?Clear to auscultation HEART: ?regular rate and rhythm ABDOMEN: ?soft, non-tender. Uterine fundus is firm, at Umbilicus, Midline and is appropriate for the stage of recovery. ?Bowel sounds present. EXTREMITIES: ?normal and trace edema SKIN: warm, dry. ? ?Incision clean/dry/well approximated. Steristrips on. ?No signs of infection noted. Const: Vital Signs, click to edit/add: Vital Signs - 24 hr 06/18/22 16:30 06/18/22 23:42 06/19/22 07:30 Temperature 97.8 F 98.1 F 98.1 F Pulse Rate [Pulse Oximeter] 89 84 80 Respiratory Rate 18 18 16 Blood Pressure [Le ft Arm] 105/67 102/67 128/85 Pulse Oximetry 959 H 96 97 Oxygen Delivery Me thod Room Air Room Air Room Air OB - DS: Summary Hospital Course Hospital Course: Chuyita is a 32 y.o. G 2 P 1 who was admitted to L & D for SROM. ?She had an complicated by a PP hemorrhage. ? The patient feels well. ?The pain is well controlled with current medications. ?She has no new complaints. ?She is breast feeding and reports things are going well.? the patient has done well.? Vitals have been stable.? She has remained afebrile.? Has a good appetite, is tolerating a general diet. ?She is voiding without difficulty.? She is passing gas and has not had a bowel movement.? She is ambulating and denies any dizziness.? Has Small amount of rubra lochia. She is undecided for prevention. Problems: PP Hemorrhage plan: Discharge home with baby. Follow up in 2 weeks and 6 weeks. , may follow up with if needed Acute anemia, continue iron supplementation for 6 weeks Peripartum Data Procedures: Procedures Operation Date: 06/17/22 00:45 Actual Procedure Side Surgeon p Section Irma Figueroa MD complications: none [place] Gender: Female Discharge Plan: Home Status at Discharge Functional status at discharge: independent ambulation Overall status at discharge: patient is progressing back to baseline Time Spent with Patient Time attestation: Total time spent providing and/or coordinating discharge services: Time spent: Less than 30 minutes Discharge Plan Discharge Disposition: Home, Self-Care Date of Admission: 06/16/22 09:31 Attending Provider on Discharge: Jillian Palmer Primary Care Provider: Norberto Lundy Condition: Stable Anticipated Discharge Date/Time: 06/19/22 12:07 Discharge Medications: New docusate sodium 100 mg Capsule 100 mg PO BID PRNQty: 100 0RF Rx Instructions: Take 1 cap 1-2 times a day as needed for constipation ibuprofen 600 mg Tablet 600 mg PO Q6H PRN (Reason: Pain) Qty: 60 0RF oxycodone 5 mg Tablet 5 - 10 mg PO Q4H PRN (Reason: Pain) Qty: 20 0RF Continued docusate sodium [Colace] 100 mg capsule 100 mg PO QDAY calcium carbonate 500 mg calcium (1,250 mg) tablet,chewable 500 mg PO QDAY PRN prenat.vits,kayleigh,[id number] Tablet 1 tab PO QDAY ferrous sulfate 324 mg (65 mg iron) tablet,delayed release (DR/EC) 324 mg PO QDAY Qty: 30 0RF Discontinued lansoprazole 15 mg capsule,delayed release(DR/EC) 15 mg PO QDAY Qty: 90 0RF omeprazole 20 mg capsule,delayed release(DR/EC) 20 mg PO QDAY Qty: 30 0RF Discharge Orders: Discharge Order (Routine); Ordered 06/19/22 Ordered By: Jillian Palmer Patient Education: OB Over the Counter Medication Information, OB /Breast Feeding Additional Instructions: Follow up in 2 weeks and 6 weeks Discharge Diet: Regular Follow Up Appointments: Norberto Lundy MD [Primary Care Provider] - Forms: [facility] Info Instructions
--- NOTE | 2022-06-21 11:16 | SUR.PHASEI ---
Late entry. Reviewed care with primary nurse Leny Traore who confirmed entries.
== END 2022-06-19 12:30 | disposition home or self-care (01) | DRG 787 ==
LOC: OB OUT 09:32 → OB 09:32
PROVIDERS: Admitting Provider Obstetrics & Gynecology; PCP Family Medicine; Visit Provider Obstetrics & Gynecology
PROC: 10D00Z1 Extraction of Products of Conception, Low, Open Approach (ICD-10-PCS; CPT 59514; principal; 2022-06-17 00:30)
DX: O42.02 Full-term premature rupture of membranes, onset of labor within 24 hours of rupture (principal); D62 Acute posthemorrhagic anemia; O72.1 Other immediate postpartum hemorrhage; O76 Abnormality in fetal heart rate and rhythm complicating labor and delivery; O32.4XX0 Maternal care for high head at term, not applicable or unspecified; I95.89 Other hypotension; O90.81 Anemia of the puerperium; F90.9 Attention-deficit hyperactivity disorder, unspecified type; Z37.0 Single live birth; Z3A.39 39 weeks gestation of pregnancy
CPT/HCPCS: 01967; 01968; 36415; 76942; 84112; 85018; 85025; 86850; 86900; 86901; 87210; 87635; 88307; 99140; A9270; J0456; J0690; J1885; J2210; J2274; J2370; J2590; J2795; J3010; J7050; J7120; S0020

== ENCOUNTER 2022-06-29 21:33 | Emergency (ER) | payer OTHER, SELFPAY ==
[2022-06-29 21:40] VITALS: BP 140/83; PULSE 105; RESP 18; TEMP 37.7; O2SAT 99; BMI 34.3
[2022-06-29] MEDS: DICLOXACILLIN 250 MG CAPSULE 500 MG PO (22:30)
[2022-06-29 22:51] VITALS: BP 140/83; PULSE 99; RESP 18; TEMP 37.7; O2SAT 99
--- NOTE | 2022-07-01 11:11 | ED_ITS ---
HPI - General Adult General Chief complaint: Fever Stated complaint: fever from mastitis Time Seen by Provider: 06/29/22 21:40 History of Present Illness HPI narrative: 32-year-old woman presenting to the emergency department with concern of mastalgia. She had called in to clinic earlier today to OB with concern of mastitis. Was sent a prescription of dicloxacillin but was unable get the prescription filled prior to pharmacy closure. Perhaps a couple weeks now with some intermittent erythema. Symptoms began more intensely about 6 hours prior to presentation here. Measured temperature though today to 103 I believe. Achy all over. Presenting here in the ER with elevated temperature but afebrile. Has not been vomiting. Has been continuing to breastfeed/pump. Is hoping to receive prescribed medication yet tonight. Had some nipple cracking and a little bleeding early on but that seems to have resolved. Related Data Home Medications Medication Instructions Recorded Confirmed prenat.vits,kayleigh,[id number] 1 tab PO QDAY 02/04/22 07/03/22 Previous Rx's Medication Instructions Recorded dicloxacillin 500 mg capsule 500 mg PO QID 7 days #28 caps 06/29/22 ferrous sulfate 325 mg (65 mg 325 mg PO QDAY #90 tabs 07/03/22 iron) tablet,delayed release Allergies Allergy/AdvReac Type Severity Reaction Status Date / Time No Known Drug Allergies Allergy Verified 07/03/22 07:53 Review of Systems Status of ROS: Reports: 6 or more systems reviewed and unremarkable except as noted in History and below PFSH PFS Medical History Attention deficit hyperactivity disorder (ADHD) ?F90.9 - Attention-deficit hyperactivity disorder, unspecified type (ICD-10) Surgical History History of section ?Z98.891 - History of uterine scar from previous surgery (ICD-10) Agency teeth extracted ?K08.409 - Partial loss of teeth, unspecified cause, unspecified class (ICD- 10) Family History Father High blood pressure Diabetes Social History Smoking Status: Never smoker Second hand tobacco smoke exposure: No How often do you have a drink containing alcohol: never How often do you have six or more drinks on one occasion: Never AUDIT-C Alcohol total score: 0 Non-prescribed substance use: denies use Little interest or pleasure in doing things: several days Feeling down, depressed, or hopeless: not at all Exam Narrative: Exam Narrative: Presents with her significant other/. Breathing easily. Easily conversant. Seems a little uncomfortable but upbeat. Heart is in an elevated rate with regular rhythm. Skin is generally rather warm. dry. Mild small patches of erythema in the left breast in particular. No evidence of abscess either side. No bleeding evident at this time. Const: Documenting provider has reviewed patient's vital signs: yes Course Vital Signs Vital signs: Initial Vital Signs Temperature 99.9 F H 06/29/22 21:40 Temperature Source Temporal Artery Scan 06/29/22 21:40 Pulse Rate 105 H 06/29/22 21:40 Respiratory Rate 18 06/29/22 21:40 Respiratory Effort Normal, Spontaneous 06/29/22 21:40 Respiratory Depth Normal 06/29/22 21:40 Respiratory Pattern Normal 06/29/22 21:40 Blood Pressure 140/83 H 06/29/22 21:40 Blood Pressure Mean 102 06/29/22 21:40 Blood Pressure Position Sitting 06/29/22 21:40 Pulse Oximetry 99 06/29/22 21:40 Oxygen Delivery Method Room Air 06/29/22 21:40 Sepsis Recent Fever Within 48 Hours Yes 06/29/22 21:40 Sepsis New/Unexplained Change in Mental Status No 06/29/22 21:40 Sepsis Action Taken by Nursing No Action Required 06/29/22 21:40 Vital Signs Temperature 99.9 F H 06/29/22 21:40 Pulse Rate 105 H 06/29/22 21:40 Respiratory Rate 18 06/29/22 21:40 Blood Pressure 140/83 H 06/29/22 21:40 Pulse Oximetry 99 06/29/22 21:40 Oxygen Delivery Method Room Air 06/29/22 21:40 Temperature 99.9 F H 06/29/22 22:51 Pulse Rate 99 06/29/22 22:51 Respiratory Rate 18 06/29/22 22:51 Blood Pressure 140/83 H 06/29/22 22:51 Pulse Oximetry 99 06/29/22 22:51 Oxygen Delivery Method Room Air 06/29/22 22:51 Medical Decision Making MDM Narrative Medical decision making narrative: Does appear to have mastitis. No significant cellulitis or abscess otherwise. Given initial dosing of dicloxacillin here in the emergency department will be sending dicloxacillin also to a different more convenient pharmacy at this point. See patient discharge Discharge Plan Discharge Clinical Impression: Mastitis Patient Disposition: Home w/ Parent or Adult Condition: Stable Instructions: Mastitis (ED) Additional Instructions: Continue to focus on hydration. Continue to pump/breast-feed. Return/be seen for marked increase in pain, persistent fever, persistent/spreading redness, worsening redness after 2 days. Can probably take another dose of dicloxacillin around 2:00 a.m. and then try to settle it into a timing that is convenient for you taking it 4 times a day, every 6 hours. Can take up to 800 mg of ibuprofen per dose every 6 hours and up to 1000 mg of acetaminophen every 4-6 hours but not to exceed 4000 mg in 24 hours. Activity Level: No Restrictions Discharge Diet: Regular Prescriptions: New dicloxacillin 500 mg capsule 500 mg PO QID 7 Days Qty: 28 0RF No Action prenat.vits,kayleigh,[id number] Tablet 1 tab PO QDAY ferrous sulfate 325 mg (65 mg iron) tablet,delayed release (DR/EC) 325 mg PO QDAY Qty: 90 0RF Follow Up/Referrals: Norberto Lundy MD [Primary Care Provider] - Stand Alone Forms: [employer] Info Instructions
== END 2022-06-29 22:32 | disposition home or self-care (01) ==
LOC: ED 22:26
PROVIDERS: Emergency Provider Family Medicine; PCP Family Medicine
DX: N61.0 Mastitis without abscess (principal)
CPT/HCPCS: 99283

== ENCOUNTER 2023-10-10 12:04 | Outpatient (CLI) | payer OTHER, SELFPAY ==
--- OUTSIDE RECORDS SUMMARY | 2023-10-10 12:07 | XMS_ITS | Patient Health Record ---
Author Organization [facility] Address [address] [place] [address] Care Team Providers Care Crack Off Person Name Role Phone None, No PCP Primary Care Provider Phill Granados Unavailable [phone] Allergies No Known Allergies Reason For Referral No Information Medications Medication SIG (Take, Route, Frequency, Duration) Notes Start Date End Date Status Active Social History Tobacco Use: Social History Observation Description Date Details (start date - stop date) Never Smoker NA - NA Tobacco Use/Smoking Question Answer Notes Are you a nonsmoker Alcohol Screen (Audit-C) Question Answer Notes Did you have a drink containing alcohol in the p ast year? No Points 0 Interpretation Negative Plan Of Treatment Pending Test Test Name Order Date HEMOGLOBIN A1c 12/12/2021 HEMOGLOBIN A1c 11/14/2021 HEPATITIS C AB W/REFL TO HCV RNA, QN, PC R 11/14/2021 HEPATITIS C AB W/REFL TO HCV RNA, QN, PC R 12/12/2021 VARICELLA ZOSTER VIRUS ANTIBODY (IGG) VARICELLA ZOSTER VIRUS ANTIBODY (IGG) OBSTETRIC PANEL W/FOURTH GENERATION HIV 11/14/2021 OBSTETRIC PANEL W/FOURTH GENERATION HIV 12/12/2021 Insurance Providers Payer Name Payer Address Payer Phone Subscriber Number Group Number Insured Name Patient Relationship to Insured Coverage Start Date Coverage End Date [employer] (INS BILL) [address] [address] [place] [address] [id number] Chuyita Ramos Self - patient is the insured
--- NOTE | 2023-10-10 12:15 | CRLHL7_ITS ---
For Patients: As a result of the Cures Act, medical imaging exams and procedure reports are released immediately into your electronic medical record. You may view this report before your referring provider. If you have questions, please contact your health care provider. INDICATION: First trimester scan, establish dates. COMPARISON: None. TECHNIQUE: Real-time huertas-scale imaging of the pelvis was performed. FINDINGS: Sonographic imaging demonstrates a single living intrauterine gestation. The embryo demonstrates a regular cardiac rate measuring 169 beats per minute. The embryo`s crown-rump length measurement of 2.7 cm corresponds to a gestational age of 9 weeks 4 days with a sonographic due date of 05/10/2024. There is a normal-appearing yolk sac. There are no gross abnormalities noted within the embryo at this early state of development. The gestational sac has a normal appearance. There is an inferior perigestational hemorrhage measuring 9 x 4 x 9 millimeters. The amount of fluid within the sac appears appropriate for gestational age. The cervix is closed. section scar noted. The ovaries are of normal size. Corpus luteal cyst right ovary. There are no suspicious fluid collections noted in the cul-de-sac. IMPRESSION: Single living intrauterine with sonographic gestational age 9 weeks 4 days and sonographic due date of 05/10/2024. Inferior subchorionic hemorrhage measuring 9 x 4 x 9 millimeters. Dictated by Yevgeniy Rosa MD @ 10/10/2023 3:25:08 PM (Electronically Signed)
== END 2023-10-10 12:05 | disposition home or self-care (01) ==
LOC: US 12:05
PROVIDERS: PCP Family Medicine; Visit Provider Registered Nurse
DX: Z34.91 Encounter for supervision of normal pregnancy, unspecified, first trimester (principal); O20.9 Hemorrhage in early pregnancy, unspecified; Z3A.09 9 weeks gestation of pregnancy
CPT/HCPCS: 76817; 86592; 86703; 86704; 86706; 86762; 86787; 86803; 86850; 86900; 86901; 87086; 87340; 87491; 87591

== ENCOUNTER 2023-12-17 12:46 | Outpatient (CLI) | payer OTHER, SELFPAY ==
--- OUTSIDE RECORDS SUMMARY | 2023-12-17 12:51 | XMS_ITS | Patient Health Record ---
Author Organization [facility] Address [address] [place] [address] Care Team Providers Care Rolled Materials Worker Name Role Phone None, No PCP Primary Care Provider Phill Granados Unavailable [phone] Allergies No Known Allergies Reason For Referral [...] Test Test Name Order Date HEMOGLOBIN A1c 11/14/2021 HEMOGLOBIN A1c 12/12/2021 HEPATITIS C AB W/REFL TO HCV RNA, QN, PC R 12/12/2021 HEPATITIS C AB W/REFL TO HCV RNA, QN, PC R 11/14/2021 VARICELLA ZOSTER VIRUS ANTIBODY (IGG) VARICELLA ZOSTER VIRUS ANTIBODY (IGG) OBSTETRIC PANEL W/FOURTH GENERATION HIV 12/12/2021 OBSTETRIC PANEL W/FOURTH GENERATION HIV 11/14/2021 Insurance Providers Payer Name Payer Address Payer Phone Subscriber Number Group Number Insured Name Patient Relationship to Insured Coverage Start Date Coverage End Date UMR (INS BILL) [address] [address] [place] [address] [id number] Chuyita Ramos Self - patient is the insured
== END 2023-12-17 12:47 | disposition home or self-care (01) ==
LOC: US 12:47
PROVIDERS: PCP Family Medicine; Visit Provider Obstetrics & Gynecology
DX: O09.522 Supervision of elderly multigravida, second trimester (principal); Z3A.19 19 weeks gestation of pregnancy
CPT/HCPCS: 76811; 76817

== ENCOUNTER 2024-02-20 08:30 | Outpatient (CLI) | payer OTHER, SELFPAY ==
--- OUTSIDE RECORDS SUMMARY | 2024-02-22 09:51 | XMS_ITS | Patient Health Record ---
Author Organization [facility] Address [address] [place] [address] Care Team Providers Care Commercial Real Estate Associate Name Role Phone None, No PCP Primary Care Provider Phill Granados Unavailable [phone] Allergies No Known Allergies Reason For Referral [...] End Date UMR (INS BILL) [address] [address] [place] [phone] [id number] Chuyita Ramos Self - patient is the insured
== END 2024-02-20 08:31 | disposition home or self-care (01) ==
LOC: NFLDREF 02-22 09:50
PROVIDERS: PCP Family Medicine; Referring Provider Family Medicine; Visit Provider Obstetrics & Gynecology
DX: Z34.93 Encounter for supervision of normal pregnancy, unspecified, third trimester (principal); Z3A.28 28 weeks gestation of pregnancy
CPT/HCPCS: 86592

== ENCOUNTER 2024-04-16 13:48 | Outpatient (CLI) | payer OTHER, SELFPAY ==
--- NOTE | 2024-04-16 13:45 | CRLHL7_ITS ---
For Patients: As a result of the Century Cures Act, medical imaging exams and procedure reports are released immediately into your electronic medical record. You may view this report before your referring provider. If you have questions, please contact your health care provider. INDICATION: Third trimester growth check. TECHNIQUE: Ultrasound OB pelvis transabdominal. Real-time huertas-scale imaging of the fetus was performed as well as color Doppler and spectral Doppler analysis of the umbilical artery. COMPARISON: None. FINDINGS: Single living intrauterine gestation. heart rate: 132 beats per minute. Presentation: Cephalic. Placenta: Anterior. Amniotic fluid deepest pocket: 6 cm. Cervix: Not visualized. The following biometric measurements were obtained: Biparietal diameter: 35 weeks 5 days. Head circumference: 36 weeks 6 days. Abdominal circumference: 39 weeks 2 days. Femur length: 35 weeks 1 day. EFW: 3268 Grams, 81 %. AUA: 36 weeks 5 days. JOE (AUA): May 09, 2024. IMPRESSION.: Viable intrauterine . No abnormalities seen. Dictated by Jeremy Gar MD @ 04/17/2024 10:23:49 AM (Electronically Signed)
== END 2024-04-16 13:49 | disposition home or self-care (01) ==
LOC: US 13:49
PROVIDERS: PCP Family Medicine; Visit Provider Obstetrics & Gynecology
DX: Z34.93 Encounter for supervision of normal pregnancy, unspecified, third trimester (principal); Z3A.35 35 weeks gestation of pregnancy
CPT/HCPCS: 76816; 87081; 87653

== ENCOUNTER 2024-05-08 22:24 | Outpatient (CLI) | payer OTHER, SELFPAY ==
[2024-05-08 22:44] VITALS: BP 115/75; PULSE 80; TEMP 36.5
[2024-05-08 22:45] VITALS: PULSE 85; O2SAT 97
[2024-05-09 00:29] VITALS: BMI 33.2
[2024-05-09 01:42] LABS: Basophils Percent Auto 0.2 % (0.0-3.0); Eosinophils Percent Auto 1.5 % (0.0-7.0); Hematocrit 35.8 % (33.0-51.0); Hemoglobin* 11.7 gm/dL (12.0-16.0); Immature Granulocytes Pct Auto 0.5 %; Lymphocytes Percent Auto 29.5 % (20-44); Mean Corpuscular HGB Conc 33 gm/dL (32-36); Mean Corpuscular Hemoglobin 27 pg (26-34); Mean Corpuscular Volume 83 fL (80-100); Monocytes Percent Auto 6.1 % (0.0-11.0); Neutrophils Percent Auto 62.2 % (42.0-72.0); Platelet Count* 275 K/uL (140-440); RDW Coefficient of Variation % 12.8 % (11.5-15.5); Red Blood Count 4.33 m/uL (4.00-5.20); White Blood Count* 11.02 K/uL (4.50-11.00)
[2024-05-09 01:44] LABS: Slide Review Reflex No
[2024-05-09 02:53] VITALS: BP 118/69; PULSE 67; RESP 16; TEMP 36.6
[2024-05-09 05:23] VITALS: BP 130/84; PULSE 65; RESP 16; TEMP 37
--- NOTE | 2024-05-09 06:22 | W.PM.LDBA ---
Subjective History of Present Illness Time Seen by Provider: 06:23 Date Seen: 05/09/24 Narrative: Chuyita is being admitted to Labor and Delivery for rule out spontaneous labor. She is a 34 year old at 39.6 weeks gestation. Her full history and physical was dictated by myself on 04/23/24. Please see this for details. She presented to L&D overnight for regular painful contractions. Per RN, her cervical exam was 280/-3 @ 2230. After 1.5hr repeat cervical exam 80/-3. Patient desired TOLAC so she was admitted for labor. Overnight night, her contractions resolved spontaneously and she was able to sleep. Patient declined pitocin and AROM. This morning, she is very comfortable and reports only rare contractions. She requested a membrane sweep to help promote contractions. SVE by me this AM: 275/-3, soft, mid position. Membrane sweep performed without complications. Patient tolerated it well. However, her cervix is unchanged for 6 hours. We discussed her labor plan. Chuyita is only comfortable laboring if her body is doing it naturally. After reviewing the risks, benefits, and alternatives of TOLAC that were previously discussed in clinic, she would opt for delivery over starting Pitocin for augmentation of labor. If she is declining Pitocin in all scenario for labor augmentation, I would not recommend AROM unless she was in labor, meaning regular contractions that are causing cervical changes. She agrees with this and would not want AROM unless she was actively laboring as well. Her requests are as follow: 1. Membrane sweep (done) 2. Do a round of labor circuit with RN to see if that can promote labor If her cervix is unchanged after all of that, she is favoring going home and returning tomorrow for scheduled repeat delivery. If she remains admitted due to cervical change or PROM but is not in active labor by the AM, she anticipates she will opt to proceed with her scheduled repeat delivery as well. Patient understands that while she's here and on the monitor, recommendations will be made based on wellbeing and she might need a delivery sooner than tomorrow morning if clinically indicated. Additionally, she can opt for delivery at any point during labor should she becomes uncomfortable to with risk of TOLAC. NST has been CAT I throughout the night. All questions answered to patient's satisfaction and to the best of my abilities. Specific Issues/Plans G 3 P 1011 Partner: Roberto. Daughter: Luz. Baby: Boy! #Diagnosed with Influenza 03/16/24. Tamiflu started 03/17. #Advanced Maternal Age Genetic testing: MaterniT-21 negative, male Level 2 ultrasound : 12/16 #History of due to arrest of descent. Desires if labor before scheduled 05/10. Predicted chance of success: 68%. Consent: Given and started to review on 01/02/24 Consent reviewed and signed on 02/20/24 36-week growth ultrasound: 04/16/24 #History of hemorrhage #ADHD. Has been managing without medication for a couple years. Imagin. 12/17/23 LVL 2 USN: Impression: Juráez intrauterine at 19w 2d gestational age.None of the anomalies commonly detected by ultrasound were evident in the detailed anatomic survey described above.Growth parameters and estimated weight were consistent with appropriate for gestational age pattern of growth.The amniotic fluid volume appeared normal. Recommendation: We discussed the findings on today's ultrasound with the patient.The patient had low risk cell free DNA screening. We discussed the availability of amniocentesis for the precise diagnosis of chromosomal abnormalities, which the patient declined amniocentesis today.Further ultrasound studies as clinically indicated.Return to primary provider for continued care. 2. 04/16/24: Vtx, SDP 6.2cm. EFW 3260 g, 7 lb 3 oz, 81%. BPD 36%, HC 28%, AC> 97%, FL 14% Covid: completed, not up to date with booster. Recommended. Declined. Flu: declined RSV: 04/09/24 Tdap: 03-05-24 H&P: By Dr. Rodriguez 04/23/24 OB Exam Physical Exam Vital signs: Temp Pulse Resp BP Pulse Ox 97.8 F 65 16 130/84 97 05/09/24 02:53 05/09/24 05:23 05/09/24 02:53 05/09/24 05:23 05/08/24 22:45 Narrative: Physical exam: General: No acute distress. Comfortable. Psych: Alert and oriented x4, full affect. HEENT: Normocephalic, atraumatic Lungs: Unlabored breathing Abdomen: Gravid, soft, no tenderness, rebound, or guarding. Contraction palpate soft. Lower extremities: No edema or erythema Pelvic exam: Dry perineum. 2/75/-3, soft, mid position. RIZVI score of 7.
--- NOTE | 2024-05-09 09:14 | W.PM.OB.MED ---
DS: Providers Provider Time Seen by Provider: 09:14 Date Seen: 05/09/24 Date of admission: 05/09/24 00:20 Primary care physician: Norberto Lundy MD Admitting Clinician: Diane Rodriguez MD Attending Physician on discharge: Diane Rodriguez MD Date of Discharge: 05/09/24 DS: Diagnosis Discharge Diagnosis (1) History of section: Status: Acute (2) Advanced maternal age in multigravida: Status: Acute Discharge Plan Discharge Disposition: Home, Self-Care Date of Admission: 05/09/24 00:20 Primary Care Provider: Norberto Lundy Condition: Stable Anticipated Discharge Date/Time: 05/09/24 08:27 Discharge Medications: Continued famotidine [Pepcid] 20 mg tablet 20 mg PO QDAY PRN prenat.vits,kayleigh,[id number] Tablet 1 tab PO QDAY Discharge Orders: Discharge Order (Routine); Ordered 05/09/24 Ordered By: Diane Rodriguez Patient Education: OB Undelivered at 35 weeks IUP or more Follow Up Appointments: Norberto Lundy MD [Primary Care Provider] - Forms: [employer] Info Instructions Hospital Course Course Hospital Course: Chuyita is being admitted to Labor and Delivery for rule out spontaneous labor. She is a 34 year old at 39.6 weeks gestation. After membrane sweep and labor circuit, she was still not having regular uncomfortable contractions. Repeat SVE by me: 275/-3, soft, mid position. Uncharged from previous. She was initially tearful and disappointed as she suspect she won't be able to go into labor on her own prior to her CD tomorrow. However, she continues to reaffirm that she does not want augmentation with Pitocin or AROM. Desires to go home and see if labor will come and to prep for upcoming delivery. She is at peace with the timeline she's given herself and feels she will be ready for her CD by tomorrow morning. Currently having very active movement. Strict return and labor precautions reinforced: patient to come back if increase in contraction frequency and intensity, LOF, vaginal bleeding, abnormal vaginal discharge, or decrease movement. Patient denies fever, chills, chest pain, SOB, n/v, headache, vision changes, RUQ pain, or dizziness. NST: baseline of 120 bpm, moderate variability, multiple qualifying accels, negative decel [place]: Q7 minutes contractions. Minimally palpable to patient. Will present for scheduled CD tomorrow or sooner if clinically indicated. Labs Labs: Laboratory Tests 05/09/24 Range/Units 01:35 WBC 11.02 H (4.50-11.00) K/uL RBC 4.33 (4.00-5.20) m/uL Hgb 11.7 L (12.0-16.0) gm/dL Hct 35.8 (33.0-51.0) % MCV 83 (80-100) fL MCH 27 (26-34) pg MCHC 33 (32-36) gm/dL RDW Coeff of Guillermo 12.8 (11.5-15.5) % Plt Count 275 (140-440) K/uL Neut % (Auto) 62.2 (42.0-72.0) % Lymph % (Auto) 29.5 (20-44) % [place] % (Auto) 6.1 (0.0-11.0) % Eos % (Auto) 1.5 (0.0-7.0) % Baso % (Auto) 0.2 (0.0-3.0) % Neut # (Auto) 6.90 (1.7-7.0) K/uL Lymph # (Auto) 3.30 H (0.90-2.90) K/uL [place] # (Auto) 0.70 (0.00-0.90) K/UL Eos # (Auto) 0.20 (0.00-0.50) K/uL Baso # (Auto) 0.00 (0.00-0.30) K/uL Abs Immat Gran (auto) 0.10 (0.00-0.30) K/uL Imm/Tot Granulo (auto) 0.5 % RPR Screen Pending Blood Type O Positive Antibody Screen NEGATIVE OB Problem List Additional Plan (1) History of section: Status: Acute (2) Advanced maternal age in multigravida: Status: Acute DS: Summary Vital Signs Vital Signs: Vital Signs Temp Pulse Resp BP Pulse Ox 05/09/24 05:23 98.6 F 16 05/09/24 05:23 65 130/84 05/09/24 02:53 97.8 F 67 16 118/69 05/08/24 22:45 97 05/08/24 22:44 97.7 F 80 115/75 Discharge Examination General appearance: alert and in no apparent distress
[2024-05-12 01:56] LABS: Rapid Plasma Reagin (RPR) Non Reactive (Non Reactive)
== END 2024-05-09 08:45 | disposition home or self-care (01) ==
LOC: OB OUT 22:25 → OB 22:25 → OB OUT 05-09 00:21 → OB 05-09 01:47
PROVIDERS: PCP Family Medicine; Visit Provider Obstetrics & Gynecology
DX: O09.523 Supervision of elderly multigravida, third trimester (principal); Z98.891 History of uterine scar from previous surgery; Z3A.39 39 weeks gestation of pregnancy
CPT/HCPCS: 36415; 85025; 86592; 86850; 86900; 86901; G0463

== ENCOUNTER 2024-05-10 05:44 | Inpatient (IN) | payer OTHER, SELFPAY ==
[2024-05-10] VITALS (38 sets, daily range): BP systolic 108–133; BP diastolic 64–81; PULSE 63–84; RESP 16–20; TEMP 36.3–37.1; O2SAT 92–98; BMI 33.2
[2024-05-10] MEDS: LACTATED RINGERS 1000 ML 1,000 ML IV (06:11)
[2024-05-10 06:20] LABS: Basophils Absolute Auto 0.02 K/uL (0.00-0.30); Basophils Percent Auto 0.2 % (0.0-3.0); Eosinophils Absolute Auto 0.13 K/uL (0.00-0.50); Eosinophils Percent Auto 1.6 % (0.0-7.0); Hematocrit 33.3 % (33.0-51.0); Hemoglobin* 10.7 gm/dL (12.0-16.0); Immature Granulocytes Abs Auto 0.06 K/uL (0.00-0.30); Immature Granulocytes Pct Auto 0.7 %; Lymphocytes Absolute Auto 2.42 K/uL (0.90-2.90); Mean Corpuscular HGB Conc 32 gm/dL (32-36); Mean Corpuscular Hemoglobin 27 pg (26-34); Mean Corpuscular Volume 83 fL (80-100); Monocytes Percent Auto 6.8 % (0.0-11.0); Neutrophils Absolute Auto 4.88 K/uL (1.7-7.0); Neutrophils Percent Auto 60.7 % (42.0-72.0); Platelet Count* 247 K/uL (140-440); RDW Coefficient of Variation % 12.8 % (11.5-15.5); Red Blood Count 4.01 m/uL (4.00-5.20); White Blood Count* 8.06 K/uL (4.50-11.00)
[2024-05-10 06:28] LABS: Slide Review Reflex No
--- NOTE | 2024-05-10 07:24 | W.PM.H&PU ---
History & Physical Update History & Physical Update H&P Reviewed and patient assessed: No changes noted
--- NOTE | 2024-05-10 07:28 | P.PCN_ITS ---
Procedure Note Time Seen by Provider: 08: Date Seen: 05/10/24 Date of procedure: 05/10/24 Will [facility] bill your pro fee for this procedure?: Yes Procedure: Preoperative diagnosis: 34-year-old 3 para 1011 at 40 and 0/7 weeks admitted for a scheduled repeat low transverse section. Postoperative diagnosis: Same Procedure: Repeat low-transverse section. Anesthesia: Spinal Surgeon: Perlita Roldan MD Trimming Press Operator: Not applicable Quantitative blood loss: 187 mL IVF: 1700 mL UOP: 300 mL, clear urine at the end of the procedure Drain(s): Tang to gravity. Specimen: None Findings: A live male infant was delivered from the direct OA position at 7:54 a.m. Apgars were 8 at 1 min and 9 at 5 min, respectively. weight: 8 lb 11 oz. Nuchal cord(s): No. The placenta was delivered spontaneously and complete at 7:56 a.m. Amniotic fluid: Clear. Normal uterus, fallopian tubes and ovaries were noted. Other findings: None Procedure: Chuyita was taken to the OR where spinal anesthetic was found be adequate. A Tang catheter was placed. The patient was then placed in the dorsal supine position with a leftward tilt. She was then prepped and draped in a normal sterile manner. A Pfannenstiel skin incision was made and carried through sharply to the underlying layer of fascia. Fascia was incised in the midline and this incision carried laterally with Myers scissors. The superior aspect of fascial incision was grasped with Marie clamps, tented up, and the rectus muscles dissected off with a combination of blunt and sharp dissection. The inferior aspect of the fascial incision was grasped with Marie clamps, tented up and again the rectus muscles dissected off with a combination of blunt and sharp dissection. The rectus muscles were in the midline. The peritoneum was entered bluntly. This opening was extended bluntly. An Constantino-O self-retaining retractor was placed. A bladder flap was not created. Uterus was incised in a low transverse manner in the midline. This incision carried laterally with blunt pressure on the inferior and superior aspects of the uterine incision. The amniotic sac was ruptured. The infant's head and body were delivered atraumatically. The was shown to the patient and her support person. The umbilical was clamped and cut immediately/after a 30-60 second delay. The was then handed to waiting nursing staff. The placenta was delivered spontaneously. The uterus was cleared of clots and debris. The uterine incision was re-approximated with the uterus in vivo. The 1st layer using 0-Vicryl in a running, locked manner. The 2nd layer using 0-Monocryl in a running, vertical, imbricating layer. Additional sutures needed for hemostasis: No. Excellent hemostasis was confirmed. The Constantino retractor was removed. The rectus muscles were not reapproximated. The rectus muscles were then closely inspected to verify hemostasis. Hemostasis was obtained with bipolar cautery. The fascia was then reapproximated using 0-Maxon loop in a running manner. The subcutaneous tissue was then irrigated with saline and hemostasis obtained with bipolar cautery. The skin was reapproximated using 4-0 Monocryl in a running subcuticular manner. Exophin skin adhesive and a that the plaques dressing were applied. The patient tolerated this procedure well. Sponge, lap and instrument counts were correct x2 active to the procedure. Patient was taken to the recovery area in stable condition. The patient received 2 g of IV Ancef prior to skin incision.
[2024-05-10] MEDS: CEFAZOLIN 2 GM INJ IVP (07:35)
--- NOTE | 2024-05-10 07:58 | SUR.OPER ---
PATIENT QUESTIONS ANSWERED SATISFACTORILY PREOPERATIVELY. PATIENT BROUGHT TO OR #5 PER AMBULATION. Patient positioned supine on OR #5 bed after the SPINAL. ? Final approval of positioning by surgeon. SURGEON DECLINES AN OFFER TO SEND THE PLACENTA TO PATHOLOGY.
[2024-05-10] MEDS: KETOROLAC 30 MG/ML inj IVP ×3 (08:16→20:15)
--- NOTE | 2024-05-10 08:39 | P.ANES_ITS ---
Anesthesia Charges Start Date/Time Anesthesia Start Date: 05/10/24 Anesthesia Start Time: 07:13 Stop Date/Time Anesthesia Stop Date: 05/10/24 Anesthesia Stop Time: 08:46 Coding CPT Codes CPT Codes: ANESTH CS DELIVERY - 44565 ([id number]) P2 - PATIENT W/MILD SYST DISEASE, QK - HADOOP SOFTWARE ENGINEER 2-4 CNCRNT ANES PROC, QX - ROAD CONDUCTOR SVC W/ MD MED DIRECTION
--- NOTE | 2024-05-10 08:39 | W.ANESCHARGE ---
Anesthesia Charges Start Date/Time Anesthesia Start Date: 05/10/24 Anesthesia Start Time: 07:13 Stop Date/Time Anesthesia Stop Date: 05/10/24 Anesthesia Stop Time: 08:46 Coding CPT Codes CPT Codes: ANESTH CS DELIVERY - 80038 ([id number]) P2 - PATIENT W/MILD SYST DISEASE, QK - LEAD DATA ENTRY OPERATOR 2-4 CNCRNT ANES PROC, QX - KNIFE OPERATOR SVC W/ MD MED DIRECTION
--- NOTE | 2024-05-10 08:53 | P.ANES_ITS ---
Anesthesia Charges Start Date/Time Anesthesia Start Date: 05/10/24 Anesthesia Start Time: 07:13 Stop Date/Time Anesthesia Stop Date: 05/10/24 Anesthesia Stop Time: 08:46 Coding CPT Codes CPT Codes: ANESTH CS DELIVERY - 01234 ([id number]) P2 - PATIENT W/MILD SYST DISEASE, QK - RUG UNDERLAY MACHINE OPERATOR 2-4 CNCRNT ANES PROC, QX - RAILWAY SIGNAL ELECTRICIAN SVC W/ MD MED DIRECTION
--- NOTE | 2024-05-10 08:53 | W.ANESCHARGE ---
Anesthesia Charges Start Date/Time Anesthesia Start Date: 05/10/24 Anesthesia Start Time: 07:13 Stop Date/Time Anesthesia Stop Date: 05/10/24 Anesthesia Stop Time: 08:46 Coding CPT Codes CPT Codes: ANESTH CS DELIVERY - 58557 ([id number]) P2 - PATIENT W/MILD SYST DISEASE, QK - DIRECTOR INTELLIGENCE ANALYSIS PROGRAMS 2-4 CNCRNT ANES PROC, QX - BELTING INSPECTOR SVC W/ MD MED DIRECTION
--- NOTE | 2024-05-10 08:56 | P.NB_ITS ---
Nerve Block Nerve Block Time Seen by Provider: 08:30 Date Seen: 05/10/24 Type of block requested by surgeon for post-operative analgesia: TAP Side: bilateral Time out performed: Yes Verification of patient name: Yes Verification of date of : Yes Site marking: not applicable Name of person performing procedure: Alta Vargas Continuous monitoring Was continuous monitoring of O2 sat, B/P, phototypesetting equipment monitor, recorded every 15 minutes?: Yes Procedure Checklist: sterile prep, needles and gloves Ultrasound guided. Images saved: Yes Medications given in 5ml increments after negative aspiration: Marcaine %: 0.25 mL: 30 Needle gauge: 20 and Exparel mL: 10 Needle gauge: 20 Patient tolerated procedure well: Yes Block Charges Block Charge (with Pro Fee): TAP Bilateral Use of Ultrasound Machine for Block: Yes- US Guidance/pain block
[2024-05-10] MEDS: ACETAMINOPHEN 500 MG TABLET 1000 MG PO ×3 (09:30→21:32)
[2024-05-11] VITALS (10 sets, daily range): BP systolic 107–112; BP diastolic 63–71; PULSE 67–87; RESP 16–20; TEMP 36.4–37.1; O2SAT 95–96
[2024-05-11] MEDS: KETOROLAC 30 MG/ML inj IVP ×3 (02:21→14:20)
[2024-05-11] MEDS: ACETAMINOPHEN 500 MG TABLET 1000 MG PO ×3 (06:38→23:58)
[2024-05-11 07:04] LABS: Hemoglobin* 9.8 gm/dL (12.0-16.0)
--- NOTE | 2024-05-11 07:48 | PM.OBPNVD1 ---
OB - PN:Subj Subjective Date Seen: 05/11/24 Narrative: Chuyita is a 34 y.o. G 3 P 2 who was admitted to L & D for repeat c/s. ?She had a section that was uncomplicated. The patient feels well. ?The pain is well controlled with current medications. ?She has no new complaints. ?She is breast feeding and reports things are going well. the patient has done well.? Vitals have been stable.? She has remained afebrile.? Has a good appetite, is tolerating a general diet. ?She is voiding without difficulty.? She is passing gas and has not had a bowel movement.? She is ambulating and denies any dizziness.? Has small amount of rubra lochia. Problems: Anemia OB - PN: Obj Exam Physical Exam: Vital signs: Temp Pulse Resp BP Pulse Ox O2 Del Method 98.8 F 73 16 107/68 95 Room Air 05/11/24 06:43 05/11/24 06:43 05/11/24 06:59 05/11/24 06:43 05/11/24 06:43 05/11/24 06:43 Narrative: GENERAL APPEARANCE:? normal affect, alert, no distress MOOD:? appropriate CHEST:? clear to auscultation HEART:? regular rate and rhythm ABDOMEN:? soft, non-tender the uterine fundus is at Umbilicus, Midline and is appropriate for the stage of recovery. EXTREMITIES:? normal and no edema INCISION: Dressing in place; clean, dry and intact OB - PN: Obj Data Labs Labs: Laboratory Results - last 24 hr 05/11/24 06:36 Hgb 9.8 L OB - PN: A/P Delivery Assessment and Plan (1) care and examination immediately after delivery: Status: Acute (2) Lactating mother: Status: Acute (3) Status post repeat low transverse section: Problem details: Boy. Chaves. 8#11oz. Apgars 8/9. Status: Acute Plan Plan: routine care Comments: Routine post-op care Anticipate discharge tomorrow , may see if needed? Hgb 9.8. Iron supplement ordered orally every other day? For pain control of perineum, breast and pelvic pain, take 600 mg Ibuprofen every 6 hours as needed by mouth or 1000 mg acetaminophen (Tylenol) every 6 hours by mouth as needed. You can alternate these so you are taking something every 3 hours as needed. A heating pad can also be used for your abdomen or breasts. You may also take docusate sodium up to twice daily to soften your stools and help to prevent constipation. You may wean off of it when your stools return to normal.?
[2024-05-11] MEDS: DOCUSATE SODIUM 100 MG CAPSULE PO (08:03)
[2024-05-11] MEDS: FERROUS SULFATE 325 MG TABLET PO (08:03)
[2024-05-11] MEDS: IBUPROFEN 600 MG TABLET PO (19:55)
[2024-05-12 00:01] VITALS: BP 121/73; PULSE 69; RESP 18; TEMP 36.4; O2SAT 97
[2024-05-12] MEDS: LANOLIN CREAM 1 APPLIC TOPICAL (00:22)
[2024-05-12] MEDS: OXYCODONE 5 MG TABLET PO ×3 (00:22→10:13)
[2024-05-12] MEDS: IBUPROFEN 600 MG TABLET PO ×2 (03:23→09:34)
[2024-05-12 04:04] VITALS: BP 122/76; PULSE 62; RESP 18; TEMP 36.3; O2SAT 96
[2024-05-12] MEDS: SIMETHICONE 80 MG TAB.CHEW PO (04:11)
[2024-05-12] MEDS: ACETAMINOPHEN 500 MG TABLET 1000 MG PO (07:42)
[2024-05-12 08:00] VITALS: BP 120/77; PULSE 70; RESP 15; TEMP 36; O2SAT 96
--- NOTE | 2024-05-12 09:27 | P.DS_ITS ---
DS: Providers Provider Date Seen: 05/12/24 Date of admission: 05/10/24 05:44 Primary care physician: Norberto Lundy MD Admitting Clinician: Perlita Roldan MD Attending Physician on discharge: Ketan Garcia CNM Date of Discharge: 05/12/24 DS: Diagnosis Discharge Diagnosis (1) care and examination immediately after delivery: Status: Acute (2) Lactating mother: Status: Acute (3) Status post repeat low transverse section: Status: Acute Problem details: Boy. Chaves. 8#11oz. Apgars 8/9. Exam Narrative: Exam Narrative: VSS. ?AfebrileGENERAL APPEARANCE: ?normal affect, alert, no distress MOOD: ?appropriate HEENT: normocephalic, neck supple, full ROM CHEST: ?Symmetrical chest wall movement. ?Normal respiratory effort. ?Clear to auscultation HEART: ?regular rate and rhythm ABDOMEN: ?soft, non-tender. Uterine fundus is firm, at Umbilicus, Midline and is appropriate for the stage of recovery. ?Bowel sounds present. EXTREMITIES: ?normal and no edema SKIN: warm, dry. ? ?Incision clean/dry/well approximated. ?No signs of infection noted. Const: Vital Signs, click to edit/add: Vital Signs - 24 hr 05/11/24 14:15 05/12/24 00:01 05/12/24 04:04 Temperature 97.6 F 97.5 F L 97.4 F L Pulse Rate [Pulse Oximeter] 87 69 62 Respiratory Rate 20 18 18 Blood Pressure [Ri ght Arm] 112/71 121/73 122/76 Pulse Oximetry 96 97 96 Oxygen Delivery Me thod Room Air Room Air Room Air 05/12/24 08:00 Temperature 96.8 F L Pulse Rate [Pulse Oximeter] 70 Respiratory Rate 15 Blood Pressure [Ri ght Arm] 120/77 Pulse Oximetry 96 Oxygen Delivery Me thod Room Air Documenting provider has reviewed patient's vital signs: yes OB - DS: Summary Hospital Course Hospital Course: Chuyita is a 34 y.o. who was admitted to L & D for repeat C/S. ?She had an uncomplicated .?The patient feels well. ?The pain is well controlled with current medications. ?She has no new complaints. ?She is breast feeding and reports things are going well.? the patient has done well.? Vitals have been stable.? She has remained afebrile.? Has a good appetite, is tolerating a general diet. ?She is voiding without difficulty.? She is passing gas and has not had a bowel movement.? She is ambulating and denies any dizziness.? Has Small amount of rubra lochia. ?She is planning an IUD for prevention. Peripartum Data delivery method: Repeat Section Procedures: Procedures Operation Date: 05/10/24 07:15 Actual Procedure Side Surgeon p Repeat Low Transverse Section Perlita Roldan MD complications: none Gender: Male Discharge Plan: Home Status at Discharge Functional status at discharge: independent ambulation Overall status at discharge: patient is progressing back to baseline Time Spent with Patient Time attestation: Total time spent providing and/or coordinating discharge services: Time spent: Less than 30 minutes Discharge Plan Discharge Disposition: Home, Self-Care Date of Admission: 05/10/24 05:44 Attending Provider on Discharge: Ketan Garcia Primary Care Provider: Norberto Lundy Condition: Stable Anticipated Discharge Date/Time: 05/12/24 12:00 Discharge Medications: New ferrous sulfate 325 mg (65 mg iron) tablet 325 mg PO Q OTHER DAY Qty: 30 0RF acetaminophen 500 mg Tablet 1,000 mg PO Q6H PRN (Reason: pain/fever) Qty: 0 0RF docusate sodium 100 mg Capsule 100 mg PO BID PRN (Reason: constipation) Qty: 90 0RF ibuprofen 600 mg Tablet 600 mg PO Q6H PRN (Reason: Pain) Qty: 60 0RF oxycodone 5 mg Tablet 5 - 10 mg PO Q4H PRN (Reason: Pain) Qty: 10 0RF Continued famotidine [Pepcid] 20 mg tablet 20 mg PO QDAY PRN prenat.vits,kayleigh,luq-hvto-givfo Tablet 1 tab PO QDAY Discharge Orders: Discharge Order (Routine); Ordered 05/12/24 Ordered By: Ketan Garcia Patient Education: OB /Breast Feeding Additional Instructions: Discharge instructions were reviewed with the patient including signs and symptoms of infection and home going medications Lifting Restrictions: 20 pounds for 6 weeks No not submerge incision under water X 2 weeks? Nothing vaginally for 6 weeks: no tampons or intercourse Do not drive while taking narcotic pain medication(s) Off Work or School for 8 weeks 2-week visit: incision check, discuss infant feeding concerns, review control options and screen for anxiety/depression. 6-week visit for an annual exam. consultation services are available to all mothers and babies for the first year after delivery.? To make an appointment, please call [phone]. Activity Level: Activity as Tolerated Discharge Diet: Regular Follow Up Appointments: [facility] [Provider Group] Forms: [employer] Info Instructions
[2024-05-12] MEDS: DOCUSATE SODIUM 100 MG CAPSULE PO (10:13)
== END 2024-05-12 10:36 | disposition home or self-care (01) | DRG 788 ==
PROVIDERS: Admitting Provider Obstetrics & Gynecology; PCP Family Medicine; Visit Provider Obstetrics & Gynecology
PROC: 10D00Z1 Extraction of Products of Conception, Low, Open Approach (ICD-10-PCS; CPT 59514; principal; 2024-05-10 07:15)
DX: O34.211 Maternal care for low transverse scar from previous cesarean delivery (principal); G89.18 Other acute postprocedural pain; Z3A.40 40 weeks gestation of pregnancy; Z37.0 Single live birth
CPT/HCPCS: 01961; 36415; 64488; 76942; 85018; 85025; 86592; 86850; 86900; 86901; 94761; A4314; A9270; J0461; J0665; J0666; J0690; J1100; J1885; J2274; J2371; J2405; J2590; J2765; J7120